=== PATIENT | female | born 1955 | race Caucasian/White ===

== ENCOUNTER → 2021-03-29 13:04 | Outpatient (CLI) | payer MEDICARE, SELFPAY ==
[2021-03-29 13:15] LABS: Bacteria Urine None Seen; RBC Urine None Seen (0-5/HPF)
[2021-03-29 14:52] LABS: Add Manual Diff / Slide Review NO; Basophils Absolute Auto 0 /uL (0-100); Basophils Percent Auto 0.8 % (0-2); Eosinophils Absolute Auto 100 /uL (0-450); Eosinophils Percent Auto 1.3 % (2-4); Hematocrit 39.1 % (36-46); Hemoglobin 12.6 g/dL (12.0-16.0); Lymphocytes Absolute Auto 400 /uL (1100-4500); Lymphocytes Percent Auto 9.6 % (25-40); Mean Corpuscular HGB Conc 32.3 % (30-36); Mean Corpuscular Hemoglobin 32.6 PG (26-34); Mean Corpuscular Volume 101.1 fL (80-100); Monocytes Absolute Auto 200 /uL (0-900); Monocytes Percent Auto 5.1 % (3-14); Neutrophils Absolute Auto 3200 /uL (1500-7000); Neutrophils Percent Auto 83.2 % (50-75); Platelet Count 186 X10^3/uL (150-400); Red Blood Cell Count 3.86 X10^6/uL (4.0-5.2); Red Cell Distribution Width 13.9 % (11.6-14.8); White Blood Cell Count 3.8 X10^3/uL (4.5-11.0)
[2021-03-29 15:02] LABS: Hemoglobin A1C% w Est Avg Glu 5.2 % (4.0-6.0)
[2021-03-29 15:17] LABS: Alanine Aminotransferase 21 IU/L (<35); Albumin 4.5 g/dL (3.5-5.0); Albumin Globulin Ratio 1.6 (1.0-2.8); Alkaline Phosphatase 92 U/L (38-126); Aspartate Aminotransferase 25 IU/L (14-36); BUN Creatinine Ratio 28.6 (6-22); Bilirubin Total 0.3 mg/dL (0.2-1.3); Blood Urea Nitrogen 14 mg/dL (7-17); Calcium 9.6 mg/dL (8.4-10.2); Carbon Dioxide 22 mmol/L (22-32); Chloride 108 mmol/L (98-107); Estimated Glomerular Filt Rate > 60.0 mL/min (>60); Globulin 2.8 g/dL (1.7-4.1); Glucose 110 mg/dL (80-110); HEMOLYSIS < 15 (0-50); Potassium 4.1 mmol/L (3.4-5.1); Sodium 139 mmol/L (137-145); Total Protein 7.3 g/dL (6.3-8.2)
[2021-03-29 15:32] LABS: Appearance Urine UA CLEAR; Bilirubin Urine UA NEGATIVE (NEGATIVE); Color Urine UA YELLOW; Glucose Urine UA NEGATIVE (Negative); Ketones Urine UA NEGATIVE (NEGATIVE); Leukocyte Esterase Urine UA 1+ (NEGATIVE); Nitrite Urine UA NEGATIVE (Negative); Occult Blood Urine UA NEGATIVE (Negative); Protein Urine UA NEGATIVE (Negative); Specific Gravity Urine UA 1.015 (1.000-1.035); Urobilinogen Urine UA 0.2 E.U./dL (0.2)
[2021-03-29 15:46] LABS: Culture Indicated Urine Specimen Cultured; Squamous Epithelial Cell Urine 0-1 /HPF (0-5/HPF); WBC Urine 5-10/HPF (0-5/HPF)
[2021-03-29 16:20] LABS: Transferrin 268 mg/dL (206-381)
== END ==
PROVIDERS: PCP Family Medicine; Referring Provider Orthopaedic Surgery; Visit Provider Orthopaedic Surgery
DX: Z01.812 Encounter for preprocedural laboratory examination (principal); Z01.818 Encounter for other preprocedural examination; D64.9 Anemia, unspecified; N39.0 Urinary tract infection, site not specified
CPT/HCPCS: 36415; 80053; 81001; 83036; 84466; 85025; 87086; 93005; 93010

== ENCOUNTER 2021-04-22 11:01 | Observation (INO) | payer MEDICARE, SELFPAY ==
[2021-04-14 08:14] VITALS: BMI 38.8
[2021-04-21] VITALS (15 sets, daily range): BP systolic 112–158; BP diastolic 49–98; PULSE 65–98; RESP 12–18; TEMP 35.6–36.9; O2SAT 93–99; BMI 38.8
--- NOTE | 2021-04-21 06:30 | DI.RAD.S_ITS ---
PROCEDURE: XR PELVIS 1-2V INDICATIONS: left JACOB TECHNIQUE: Intra-operative view of the pelvis and hip acquired. COMPARISON: None. FINDINGS: Bones: Intraoperative devices prior to placement of arthroplasty prostheses are in expected positions. No fractures or suspicious bony lesions. Soft tissues: Overlying surgical retractors are present, along with other intraoperative changes. IMPRESSION: Intraoperative single frontal view during preparation for placement of final components of left total hip arthroplasty. Normal alignment established. Dictated by: Juan Giraldo M.D. on 04/21/2021 at 15:05 Approved by: Juan Giraldo M.D. on 04/21/2021 at 15:06
--- NOTE | 2021-04-21 06:30 | DI.RAD.S_ITS ---
PROCEDURE: XR HIP W PEL IF DONE LT 2V INDICATIONS: postop films TECHNIQUE: AP pelvis and lateral view of the left hip acquired. COMPARISON: [facility], AVINASH, XR PELVIS 1-2V, 04/21/2021, 14:22. FINDINGS: Bones: Patient is status post left hip arthroplasty, with hardware components in expected positions. The hip joint appears congruent. The visualized bony structures appear intact. Soft tissues: Overlying postoperative changes are noted. No suspicious soft tissue densities. IMPRESSION: Expected immediate postoperative appearance of left hip arthroplasty. Dictated by: Johnie MADISON Interpreted: Shawna Lincoln MD on 04/21/2021 at 15:37 Transcribed by: TRU on 04/21/2021 at 15:38 Approved by: Shawna Lincoln M.D. on 04/21/2021 at 15:47
[2021-04-21] MEDS: LACTATED RINGERS 1,000 ML 42 ML IV ×2 (12:09→14:13)
[2021-04-21] MEDS: VANCOMYCIN 1,000 MG/200 ML PIGGYBACK 200 MG IV (12:10)
[2021-04-21] MEDS: CELECOXIB 200 MG CAPSULE PO (12:11)
--- NOTE | 2021-04-21 12:26 | PM.PREOP ---
Pre-operative Note COVID-19 COVID-19 status: Negative Interval Note History & Physical reviewed/Exam performed by Physician: Yes Changes to H&P: No
--- NOTE | 2021-04-21 12:27 | PM.OP.1 ---
Operative Date/Time/Diagnoses Date of procedure: 04/21/21 Time of procedure: 13:00 Pre-op diagnosis: left AVN Post-op diagnosis: same Procedure & Clinicians Procedure: Left total hip arthroplasty posterior approach Same procedure as scheduled: Yes Indications: The patient has had progressively worsening left hip pain with radiographic changes consistent with severe avascular necrosis. She has a complicated history with a history of rectal cancer and previous radiation to her pelvis and hip area and also has known metastatic cancer. Her case was evaluated by Oncology felt she had appropriate longevity to consider hip arthroplasty because of incapacitating left hip pain. Non-operative management has failed and the patient has requested total hip replacement. The risks, benefits and alternatives to surgery were discussed with the patient prior to proceeding. Risks discussed included, but were not limited to, failure to relieve pain, leg length discrepancy, dislocation, stiffness, infection, nerve damage, deep venous thrombosis, pulmonary embolism, stroke, coma, heart attack, permanent paralysis and , as well as the potential need for eventual revision of the prosthetic. Surgeon: Neha Mendes Insurance Account Assistant: Cayden Hensley Anesthesia Type: General and Spinal Operative Notes Findings: Severe left hip avascular necrosis, soft bone, adequate stability Closure Type: primary Specimen(s): none sent Prosthetic devices, grafts, tissues, transplants, or devices: [employer] 15 standard offset Synergy, R3 54mm cup, +0 by 36mm head, one 20mm screw Applied: drain(s) Estimated Blood Loss (mL): 250 Blood products transfused: none Procedure in detail: The patient was seen in the pre-operative area, where the patient identified the left hip as the operative site and this was marked with my initials. The patient received pre-operative antibiotics and was taken to the operating room and placed on the operative table in the right lateral decubitus position after satisfactory anesthesia. A part time out was performed. The left leg was prepared from the ankle to the iliac crest with ChloroPrep in the usual fashion and draped through sterile drapes. The hip was approached through an approximately 20 cm incision centered over the greater trochanter and curving gently posteriorly as it went proximally. This was carried sharply to the fascia jadiel, which was divided and retracted with a self retaining retractor. The trochanteric bursa was excised with care being taken to avoid the sciatic nerve, which was identified and protected throughout the case. The short external rotators were incised and the capsulomuscular flap was raised and tagged for later repair. The hip was dislocated, and a femoral neck osteotomy performed approximately 15 mm above the lesser trochanter. Retractors were placed around the femur. The canal was opened with a box cutting osteotome, followed by a T handled reamer and a lateralizing reamer. The canal reamers were then used, followed by sequential broaching until there was good stability of the broach in the femur. Retractors were placed to expose the acetabulum. The labrum and central soft tissues were removed. Reaming was performed initially going up in 2 mm increments, then 1 mm increments until good bite was obtained with an odd sized reamer. The cup 1 mm larger than the last reamer was then inserted using the appropriate anteversion guides. It was further stabilized with a single screw. A trial neutral liner was placed. The broach was placed in the canal. A trial head and neck were then placed and the hip relocated and checked for leg length and stability. An intraoperative film confirmed the component position and no evidence of fracture. The patient was stable in the position of sleep, of squatting, and could be put through a range of motion with 45 degrees internal rotation without dislocation. At 90 degrees flexion, internal rotation to 70? was possible before dislocation. This was felt to be satisfactory and the appropriate components were opened, and the trials were removed. The acetabular liner was impacted into position. The final stem was then impacted into the prepared femoral canal. A brief Betadine soak was performed while trialing with head options. The hip was meticulously irrigated with normal saline. Finally the femoral head was impacted onto the stem. The acetabulum was cleared of all material and the hip relocated one final time. The capsulomuscular flap was then repaired to the greater trochanter though an awl hole using the tag sutures. The short external rotators were repaired with a nonabsorbable suture. A deep drain was placed and brought out anteriorly. The fascia jadiel was closed with Vicryl. The subcutaneous layer was closed with barbed sutures and SteriStrips. An Aquacel Ag dressing was applied and the patient was taken to recovery having tolerated the procedure well. Complications: none Post-operative Condition: stable Disposition: Acute Care Plan for aftercare: The patient will be maintained on a standard total hip replacement protocol with weight bearing as tolerated and posterior hip precautions. The patient will receive Aspirin and sequential compression devices for DVT prophylaxis. The patient will be discharged home when safe for the home environment.
[2021-04-21] MEDS: CEFAZOLIN 1 GM VIAL 2 GM IV ×2 (13:15→22:18)
[2021-04-21] MEDS: TRANEXAMIC ACID 1,000 MG VIAL 1000 MG INJ (13:42)
--- NOTE | 2021-04-21 13:52 | SUR.OPER ---
Lateral on padded OR bed. Gel axillary roll. Arms secured on padded armboard with pillow supporting top arm. Padded hip positioner braces x4 - anterior and posterior chest and pelvis. Additional gel pad used anterior pelvis. Gel pad under bottom leg from knee to foot and secured with tape over sheet.
[2021-04-21] MEDS: BUPIVACAINE LIPOSOME 266 MG/20 ML VIAL INJ (14:03)
[2021-04-21] MEDS: BUPIVACAINE 0.25% (PF) VIAL 30 ML INJ (14:04)
[2021-04-21] MEDS: EPINEPHrine 1 MG/ML 0.3 MG INJ (14:05)
[2021-04-21] MEDS: fentaNYL 100 MCG/2 ML INJ IV ×2 (15:42→15:53)
[2021-04-21] MEDS: ONDANSETRON 4 MG/2 ML INJ IV (15:45)
--- NOTE | 2021-04-21 16:41 | PC.NURSE ---
Addendum entered by Hilary Perera R.N. 04/21/21 22:19: IV fluids discontinued and left chest portacath deaccessed. This machine sign writer estabalished peripheral iv access 24 gauge to administer scheduled iv antibiotics. Pt reports pain improved with dilaudid. No change in neurovascular status this evening shift. Lisinopril held this evening as blood pressure is normotensive and pt on pain medications and off of iv fluids. Pt is s/p spinal and this machine sign writer has observed these patients can become hypotensive with activity. Lisinopril held with this in mind. Addendum entered by Hilary Perera R.N. 04/21/21 20:22: Pt's iv fluids have infused without difficulty until this point when pump alarms occlusion. Unable to flush portacath left chest, unable to draw blood. Moved pt's left arm in various positions and still unable. Changed cap to portacath tubing and still without success. Able to flush with pressure using 3 cc syringe, but this is also difficult. Able to flush with heparin, but still with signficiant difficulty. Phone call to Dr. Murphy on-call for Dr. Mendes and this was discussed. Pt may be without iv access as per Dr. Murphy. Pt is taking oral foods and fluids well, pain is managed with oral analgesia and pt is voiding. Addendum entered by Hilary Perera R.N. 04/21/21 17:41: No relief from pain with ibuprofen and oxycodone. Administered po dilaudid as ordered. Original Note: Pt to room 205 from PACU wide awake and conversant. Rates left hip pain /10. CAT drain and hemovac intact to left hip with clean and dry dressing. Ice to site. As per GANTRY RIGGER Jaxson's report, pt's left foot is cooler than right with weak pedal pulse only discoverable with doppler. Per Jaxson, this was the finding in PACU as well and Dr. Mendes was made aware. Right foot is cool to touch and blotchy in color, but warmer than left foot. Pedal pulse right foot present with doppler.
--- NOTE | 2021-04-21 16:50 | SUR.PHASEI ---
DR. DELA CRUZ NOTIFIED LEFT FOOT COOL COMPARED TO RIGHT FOOT. CAP REFILL 5 SEC, THEN 4 SECONDS WHEN RECHECKED AT TIME OF NOTIFICATION. ALSO NOTIFIED THAT PEDAL PULSES FOUND BY DOPPLER ONLY ON LEFT FOOT. NO FURTHER ORDERS AT THIS TIME. SOCK REAPPLIED. WARM BLANKETS PROVIDED. REPORT GIVEN TO MELISA LEAL WHO MET US AT BEDSIDE FOR FACE TO FACE HANDOFF. BED IN LOCKED POSITION, CALL LIGHT IN REACH, SCD'S ON. DRSG CHECKED TOGETHER AND PULSES AUSCULTATED BY DOPPLER. ALL QUESTIONS ANSWERED TO SATISFACTION.
[2021-04-21] MEDS: LACTATED RINGERS 1,000 ML 125 ML IV (16:53)
[2021-04-21] MEDS: OXYCODONE IR 5 MG TABLET 10 MG PO (16:53)
[2021-04-21] MEDS: IBUPROFEN 400 MG TABLET PO ×2 (16:56→20:36)
[2021-04-21] MEDS: HYDROMORPHONE 2 MG TABLET PO ×3 (17:40→23:20)
[2021-04-21] MEDS: ACETAMINOPHEN 325 MG TABLET 650 MG PO (20:30)
[2021-04-21] MEDS: CYCLOBENZAPRINE 10 MG TABLET 5 MG PO (20:31)
[2021-04-21] MEDS: GABAPENTIN 300 MG CAPSULE PO (20:33)
[2021-04-21] MEDS: DOCUSATE 100 MG CAPSULE PO (20:37)
[2021-04-21] MEDS: ASPIRIN EC 81 MG TABLET PO (20:37)
[2021-04-21] MEDS: diphenhydrAMINE 25 MG TABLET PO (23:20)
--- NOTE | 2021-04-21 23:30 | PC.NURSE ---
Patient personal medications from [facility] given to this student nurse. They were bagged, labeled and sent to pharmacy per MELISA Willoughby direction.
[2021-04-22] MEDS: IBUPROFEN 400 MG TABLET PO ×6 (01:27→21:00)
[2021-04-22 05:03] VITALS: BP 127/68; PULSE 81; RESP 18; TEMP 36.6; O2SAT 92
[2021-04-22] MEDS: CEFAZOLIN 1 GM VIAL 2 GM IV (05:05)
[2021-04-22 05:45] LABS: Hematocrit 35.6 % (36-46); Hemoglobin 11.6 g/dL (12.0-16.0)
[2021-04-22 08:32] VITALS: BP 119/67; PULSE 87; RESP 16; TEMP 36.7; O2SAT 93
[2021-04-22] MEDS: ASPIRIN EC 81 MG TABLET PO ×2 (08:49→21:08)
[2021-04-22] MEDS: ACETAMINOPHEN 325 MG TABLET 650 MG PO ×3 (08:49→21:06)
[2021-04-22] MEDS: DOCUSATE 100 MG CAPSULE PO ×2 (08:49→21:08)
[2021-04-22] MEDS: GABAPENTIN 300 MG CAPSULE PO ×2 (08:49→21:08)
--- NOTE | 2021-04-22 08:50 | PT.IIE ---
Current Diagnoses Unilateral primary osteoarthritis, left hip (04/21/21) Surgery Performed Operation Date: 04/21/21 13:00 Actual Procedures p Total Hip Arthroplasty(Left) - Neha Mendes MD Medical History (Last Reviewed 04/22/21 @ 08:59 by Skip Boyle PA-C) Colostomy in place GERD (gastroesophageal reflux disease) Hiatal hernia History of chemotherapy HTN (hypertension) Neuropathy Osteoarthritis Port-A-Cath in place Radiation adverse effect Rectal cancer (~2018) Seasonal allergies Physical Therapy Inpatient Evaluation/Re-Eval M1 PT/OT-IP Prior Functional Status Start: 04/22/21 11:16 Freq: NEEDED Status: Active Protocol: Document 04/22/21 08:50 AB (Rec: 04/22/21 11:37 AB [id number]) Medical Review Prior Functional Status Medical History Reviewed Yes Communication able to make needs known Mobility and Gait pt stated that she is modified independent with all mobilities and ambulation using SPC Social History Household Members none Living Arrangements Mobile home Number of Floors (Floors) One Floor Number of Stairs To Enter/Railing? 7 steps B rails to enter Home Environment High Toilet,Tub/Shower Home Equipment Grab Bars Near Toilet,Grab Bars In Shower Additional Social History Comment pt stated that she has 2 neighbors/friends that will assist her but may not be able to provide her with physical assistance; stated that her sister who lives in [place], [place] and is an RN will come to stay with her on saturday and will be able to assist her for ~ 5 days. pt sleeps an office chair propped against the wall and she has a foot stool to support her LE M2 PT-IP Current Condition Start: 04/22/21 11:16 Freq: NEEDED Status: Active Protocol: Document 04/22/21 08:50 AB (Rec: 04/22/21 11:37 AB [id number]) Physical Therapy Current Condition Current Condition Evaluation Date 04/22/21 Treatment Diagnosis s/p L JACOB posterior approach; difficulty in walking Onset Date 04/21/21 Precautions Posterior Hip Precautions No Hip Flexion > 90 degrees,No Hip Internal Rotation,No Hip Adduction Weight Bearing Status Weight Bearing Status Weight Bear as Tolerated Allowed Weight Bearing Amount (enter % LLE WBAT or #) (%) M3 PT-IP Subjective Start: 04/22/21 11:16 Freq: NEEDED Status: Active Protocol: Document 04/22/21 08:50 AB (Rec: 04/22/21 11:37 AB [id number]) Subjective Physical Therapy Visit Type Type Initial Evaluation Visit Start Time 08:50 Visit Stop Time 10:30 Total Visit Minutes 61 Number of INSTALLATION TECH Visits 0 Physical Therapy Visit Comments Patient Comments agreeable to do PT; stated that she wants to stay in the hospital for 1 more night Therapy Pain Assessment Pain When Pain Assessed At Rest Pain Present Pain Present Pain Reported Location left hip Intensity 6 Scale Used Numeric (0 - 10) Pain Behaviors Guarding Pain Management Techniques Apply Cold,Modification of Treatment,Re-positioning, Timing of Activity with Medications M4 PT-IP Mobility and Gait Start: 04/22/21 11:16 Freq: NEEDED Status: Active Protocol: Document 04/22/21 08:50 AB (Rec: 04/22/21 11:37 AB [id number]) PT-Bed Mobility Assessment Supine to Sit Supine to Sit Maximum Assistance PT-Transfer Assessment Sit to and From Stand Sit to and from Stand Maximum Assistance,2 Person Assistance,Use of Upper Extremities Equipment Transfer Assistive Device Gait Belt,Front Wheeled Walker Orthotic/Prosthetic Devices or Brace: No Transfers Transfer Destination Chair Transfer Technique ambulated using FWW Transfer Ability Level of Assist Maximum Assistance,Use of Upper Extremities Comments Mobility Comments pt stated that she has been limited with mobility for a long time but able to manage by herself. educated pt on hip precautions and safety. pt completed supine to sit max A and max cues. pt was able to sit on EOB CGA. educated on sit to stand techniques and how to maintain hip precautions. pt tends to rotate trunk towards R side during sit to stand resulting in IR on LLE. attempted sit to stand x 4 reps requiring max A x 2 and max cues. pt ambulated using FWW ~ 12 ft mod A and max cues. pt requested to sit down on chair . positioned on chair. call light and table placed within reach. informed regarding safe d/c plans and pt understood and d/ c options. currently recommending SNF rehab but insurance may not cover. pt stated that one of her friends might be able to assist her some but cannot stay with her. informed pt that she is needing 2 person assist at this time. pt understood. Gait Assessment Gait Gait Assistance Required: Moderate Assistance,1 Person Assist Distance (Feet) 12 Able to Maintain Weight Bearing Status Yes During Gait Assistive Devices Assistive Device Gait Belt,Front Wheeled Walker Orthotic/Prosthetic Devices or Brace: No Gait Deviations General Gait Pattern Antalgic,Decreased Stride Length,Decreased Feet Clearance,Lateral Trunk Lean, Step-to Gait Factors Limiting Gait Function Factors Limiting Gait Function Decreased Activity Tolerance, Decreased Strength,Limited Range of Motion,Pain,Poor Balance,Poor Safety Awareness PT-Balance Assessment Sitting Balance and Reactions Static Sitting Balance Ability Good Dynamic Sitting Balance Ability Good Standing Balance and Reactions Static Standing Balance Ability Poor Dynamic Standing Balance Ability Poor Device Used FWW M5 PT-IP Objective Assessments Start: 04/22/21 11:16 Freq: NEEDED Status: Active Protocol: Document 04/22/21 08:50 AB (Rec: 04/22/21 11:37 AB [id number]) Orientation Orientation/Cognition Level of Alertness Alert Orientation Name,Place,Situation Safety Awareness Decreased Safety Awareness Gross Range of Motion Lower Extremity ROM Assessment Within Functional Limits Strength Lower Extremity Strength Assessment Left Impaired Hip 3+/5 Knee 3+/5 M6 PT-IP Treatment Start: 04/22/21 11:16 Freq: NEEDED Status: Active Protocol: Document 04/22/21 08:50 AB (Rec: 04/22/21 11:37 AB [id number]) Physical Therapy Treatment Education Education Provided Precautions,Weight Bearing Status,Post-Op Packet,Safety M7 PT-IP Assessment and Plan Start: 04/22/21 11:16 Freq: NEEDED Status: Active Protocol: Document 04/22/21 08:50 AB (Rec: 04/22/21 11:37 AB [id number]) PT Summary Assessment and Plan Potential Rehabilitation Potential Fair Status of Condition at Evaluation Evolving Summary Impairments Pain,ROM,Strength,Balance, Coordination,Sensation,Tone, Cognition,Bed Mobility, Transfers,Gait,Activity Tolerance Assessment Summary pt requiring max A x 2 with sit to stand and max cues with ambulation using FWW. pt lives alone and will not have consistent assistance at home until her sister comes in on saturday. pt also has stairs at home and is not appropriate to do stairs at this time. will continue to assess progress but at this time, pt may require SNF rehab. will conduct caregiver training and stair climbing training when appropriate Goals Bed Mobility Goal Independent Transfer Goal Independent,Front Wheeled Walker Gait Goal Independent,Front Wheel Walker Gait Distance 150 Other Goals up/down 7 step B rails SBA Days to Meet Goals 5 Frequency of Treatment Frequency Of Treatment Twice a Day Treatment Plan Physical Therapy Treatment Plan Bed Mobility Training,Transfer Training,Gait Training, Therapeutic Exercise,Balance Retraining,Post Op Education, Discharge Planning,Hot or Cold Pack,Neuromuscular Re-ed, Coordination Retraining,Manual Therapy Precautions Posterior Hip Precautions No Hip Flexion > 90 degrees,No Hip Internal Rotation,No Hip Adduction Recommendations To Nursing Amount of Assist Needed 2 Person Assist Discharge Recommendations PT Discharge Recommendations Home with 08/04 Assist Available,Home Health,SNF Rehab,Home vs SNF Transportation Needs at Discharge Private Vehicle,Wheelchair/ Cabulance
--- NOTE | 2021-04-22 08:56 | PM.PNPO.1 ---
Subjective Subjective Date Patient Seen: 04/22/21 Time Patient Seen: 08:56 Interval history: Patient states she is doing well overall but reports moderate pain at rest. At this time she rates her pain a 7/10 in intensity. She denies fever, chills, nausea, chest pain, shortness of breath, or urinary retention. Patient reports that she has not yet worked with physical therapy, and she notes that she is concerned about left lower extremity weakness. She also reports that she does not feel she has the care at home that she will need in order to continue to improve if discharged today. Exam Vital Signs (past 8 hours): - 04/22/21 05:03 04/22/21 08:32 Temperature 97.9 F 98.1 F Pulse Rate 81 87 Respiratory Rate 18 16 Blood Pressure 127/68 119/67 Pulse Oximetry 92 93 Oxygen Delivery Method Room Air Oxygen Flow Rate 0 Narrative Exam Narrative: 65-year-old female postop day 1 status post left posterior total hip arthroplasty. Patient is resting comfortably in bed, is in no acute distress, and is alert and oriented x3. Skin is warm and dry, and the skin surrounding the incision site is free of erythema, warmth, induration, or discharge. Dressing over the incision site is clean, dry, and intact. Wound drain is draining scant amount of red blood. Good sensation appreciated throughout the bilateral lower extremities to light touch. Mild tenderness to palpation appreciated at the anteromedial aspect of the left proximal thigh. Ankle dorsiflexion, plantar flexion, eversion, inversion performed bilaterally without difficulty or discomfort. Calves are soft and nontender, negative Homans sign. DP pulses palpated bilaterally and are even. No other signs of DVT appreciated. Const General: cooperative, healthy appearing and comfortable Resp Effort & Inspection: normal respiratory effort and able to speak in complete sentences Skin General: no rashes or lesions noted Objective Labs Result Diagrams: 04/22/21 05:30 Labs: Laboratory Results - last 24 hr 04/22/21 05:30 Hgb 11.6 L Hct 35.6 L PFSH Medical History Colostomy in place GERD (gastroesophageal reflux disease) Hiatal hernia History of chemotherapy HTN (hypertension) Neuropathy Osteoarthritis Port-A-Cath in place Radiation adverse effect Rectal cancer (~2019) Seasonal allergies Surgical History History of hysterectomy Hx of arthroscopy of right knee Hx of cholecystectomy Social History household members: none Smoking Status: Never smoker alcohol intake: never Assessment & Plan Post-op Postoperative Procedures: Procedures Operation Date: 04/21/21 13:00 Actual Procedure Side Surgeon p Total Hip Arthroplasty Left Neha Doretha Mendes MD Postoperative day: 1 Postoperative status: doing well Postoperative plan: ambulate Postoperative plan narrative: Patient is to work on ambulation with the assistance of a front wheeled walker with physical therapy. Patient is also to work on stair [place] prior to discharge. Current pain management regimen is to be continued. Aspirin 81 mg twice daily is to be continued for DVT prophylaxis along with the assistance of sequential compression devices. We will continue to monitor the patient's progress with physical therapy. Plan for discharge likely home tomorrow pending successful work with physical therapy. Quality VTE Deep Vein Thrombosis/Pulmonary Embolism Present on Admission: No
[2021-04-22] MEDS: OXYCODONE IR 5 MG TABLET 10 MG PO ×2 (09:16→12:30)
[2021-04-22] MEDS: SODIUM CHLORIDE 0.9% FLUSH 10 ML IV ×2 (09:22→21:09)
--- NOTE | 2021-04-22 11:41 | PC.NURSE ---
Patient up to BSC with 1 p assist using FWW this AM. Voiding without complication. Burping colostomy. Endorses pain /, Oxy administered. Skip SONI into see patient, will attempt to control pain without PO Dilaudid and instead maintain pain with Oxy 5-10 mg. Patient receptive to this plan. L Hip dressing is dry and intact, pinpoint strikethrough noted. Hemovac removed per order, patient tolerated. CMS intact. SCD's were on bilaterally and removed for transfer to chair. Lungs CTA, patient remains on RA, VSS.
--- NOTE | 2021-04-22 12:21 | CM.IDA ---
Initial DCP Assessment Note Pt is a 65 yo female, resident of [place], now POD#1 from left hip surgery by Dr Mendes PCP: Paulette Muir Payer: [employer] CAMPOS Reviewed chart, patient appears slow to progress s/p hip surgery and PT recommending home w/assist vs SNF. Met w/patient, introduced role. Patient lives alone in an , within a [place]. Patient's younger sister is an METER MAINTENANCE PERSON in [place] and will be driving up to assist patient, arrival is Saturday. Patient is a retired mental health provider/medical social consultant, no adult children. We reviewed DCP options and patient does not feel she requires SNF, patient states she could get transport home tomorrow and have neighbors assist over the next 48 hrs until her sister arrives. Patient would appreciate HH referral, no agency preference, so made referral to [facility] for RN/PT per calendar rotation. Plan: DC home w/ HH expected tomorrow if patient can safely ambulate out of bed and to the , possible cg training w/neighbor (?) SHAWN Barker Discharge Planning/Care Management CM Discharge Assessment Start: 04/22/21 12:17 Freq: Status: Active Protocol: Document 04/22/21 12:17 JADA (Rec: 04/22/21 12:21 JADA [id number]) Discharge Planning Assessment Assigned [employer] SHAWN Salas DPOA/Assigned Designee Name sister Pacheco Contact Information [phone] Advance Directives? No History Provided By Patient Prior Living Arrangements Mobile home Household Members none Type of transporation used prior to Drives own vehicle admit Independent with ADL's Yes: Decreased activity tolerance Is patient alert and oriented? Yes Patient/Family Preference Home with Home Health Barriers to Discharge Yes Comment Lives alone, sister arrives Saturday from [place], lives [place] Discharge Plan Home with Home Health Transportation Arrangement Friend Referrals Initiated Home Health Additional Comment [facility] per calendar rotation Whiteboard Updated in Patient Room with Yes name and ext. # of [employer] Sawyer
--- NOTE | 2021-04-22 13:20 | PT.IPTN ---
Current Diagnoses Unilateral primary osteoarthritis, left hip (04/21/21) Surgery Performed Operation Date: 04/21/21 13:00 Actual Procedures p Total Hip Arthroplasty(Left) - Neha Mendes MD Physical Therapy Treatment Note M2 PT-IP Current Condition Start: 04/22/21 11:16 Freq: NEEDED Status: Active Protocol: Document 04/22/21 08:50 AB (Rec: 04/22/21 11:37 AB [id number]) Physical Therapy Current Condition Current Condition Evaluation Date 04/22/21 Treatment Diagnosis s/p L JACOB posterior approach; difficulty in walking Onset Date 04/21/21 Precautions Posterior Hip Precautions No Hip Flexion > 90 degrees,No Hip Internal Rotation,No Hip Adduction Weight Bearing Status Weight Bearing Status Weight Bear as Tolerated Allowed Weight Bearing Amount (enter % LLE WBAT or #) (%) M3 PT-IP Subjective Start: 04/22/21 11:16 Freq: NEEDED Status: Active Protocol: Document 04/22/21 13:20 AB (Rec: 04/22/21 14:59 AB [id number]) Subjective Physical Therapy Visit Type Type Treatment Note Visit Start Time 13:20 Visit Stop Time 14:10 Total Visit Minutes 50 Number of PHYSICAL FITNESS TEACHER Visits 0 Physical Therapy Visit Comments Patient Comments pt agreed to do PT Therapy Pain Assessment Pain When Pain Assessed At Rest Pain Present Pain Present Pain Reported Location left hip Intensity 3 Scale Used Numeric (0 - 10) Pain Management Techniques Apply Cold,Distraction, Modification of Treatment,Re- positioning,Timing of Activity with Medications M4 PT-IP Mobility and Gait Start: 04/22/21 11:16 Freq: NEEDED Status: Active Protocol: Document 04/22/21 13:20 AB (Rec: 04/22/21 14:59 AB [id number]) PT-Bed Mobility Assessment Supine to Sit Supine to Sit Standby Assistance,Bedrails Sit to Supine Sit to Supine Minimal Assistance,1 Person Assistance PT-Transfer Assessment Sit to and From Stand Sit to and from Stand Minimal Assistance,Moderate Assistance,1 Person Assistance ,Use of Upper Extremities Equipment Transfer Assistive Device Gait Belt,Front Wheeled Walker Orthotic/Prosthetic Devices or Brace: No Transfers Transfer Destination Chair Transfer Technique ambulated using FWW Transfer Ability Level of Assist Minimal Assistance,Moderate Assistance,1 Person Assistance ,Use of Upper Extremities Comments Mobility Comments reviewed hip precautions and pt recalled 2/3. pt completed supine to sit HOB elevated ~ 20 deg and pt used bed rail and completed SBA and cues for techniques. educated on sit< >stand techniques and to maintain hip precautions. completed sit <>stand x 4 reps . on first sit to stand, pt attempted x 3 but tends to have LLE pulled behind her and pt rotated trunk to the R with increase IR on LLE. educated pt again on techniques. completed sit to stand 3 more time min to mod A and max cues. pt ambulated ~ 30 ft in room using FWW min A. sat on chair. completed sit <> stand from chair min A and cues. pt ambulated back to the bed ~ 12 ft using FWW min A and cues. pt refused to do stair climbing and requested to go back to bed. completed sit to supine max cues min A with LLE elevation. positioned pt in bed. call light and table placed within reach. educated pt on car transfers, tub transfer and equipement needs as well as stair climbing. pt refused to do stair climbing today but agreed to attempt tomorrow. stated that she usually holds on to L rail and uses SPC on R and prefer to cotinue doing the same. will attempt tomorrow. Gait Assessment Gait Gait Assistance Required: Minimum Assistance Distance (Feet) 30 Able to Maintain Weight Bearing Status Yes During Gait Assistive Devices Assistive Device Gait Belt,Front Wheeled Walker Orthotic/Prosthetic Devices or Brace: No Gait Deviations General Gait Pattern Antalgic,Decreased Stride Length,Decreased Feet Clearance Factors Limiting Gait Function Factors Limiting Gait Function Decreased Activity Tolerance, Decreased Strength,Limited Range of Motion,Pain,Poor Balance,Poor Safety Awareness M5 PT-IP Objective Assessments Start: 04/22/21 11:16 Freq: NEEDED Status: Active Protocol: Document 04/22/21 08:50 AB (Rec: 04/22/21 11:37 AB [id number]) Orientation Orientation/Cognition Level of Alertness Alert Orientation Name,Place,Situation Safety Awareness Decreased Safety Awareness Gross Range of Motion Lower Extremity ROM Assessment Within Functional Limits Strength Lower Extremity Strength Assessment Left Impaired Hip 3+/5 Knee 3+/5 M6 PT-IP Treatment Start: 04/22/21 11:16 Freq: NEEDED Status: Active Protocol: Document 04/22/21 13:20 AB (Rec: 04/22/21 14:59 AB [id number]) Physical Therapy Treatment Education Education Provided Precautions,Safety M7 PT-IP Assessment and Plan Start: 04/22/21 11:16 Freq: NEEDED Status: Active Protocol: Document 04/22/21 13:20 AB (Rec: 04/22/21 14:59 AB [id number]) PT Summary Assessment and Plan Potential Rehabilitation Potential Fair Summary Impairments Pain,ROM,Strength,Balance, Coordination,Sensation,Tone, Cognition,Bed Mobility, Transfers,Gait,Activity Tolerance Progress Towards Goals Slow Progress due to Pain,Slow Progress due to Activity Tolerance,Slow Progress - Other Assessment Summary pt improving slowly with mobility and requiring min A with ambulation using FWW. pt lives alone and sister will be coming saturday from [place] to assist pt at home for ~ 5 days . stated that she has 2 friends that will assist as needed but will not be able to provide physical assistance. will continue to work towards goal to improve independence for safe d/c plan. pt has stairs to enter the house and will have to complete prior to d/c. Goals Bed Mobility Goal Independent Transfer Goal Independent,Front Wheeled Walker Gait Goal Independent,Front Wheel Walker Gait Distance 150 Other Goals up/down 7 step L rails + R SPC SBA Days to Meet Goals 5 Frequency of Treatment Frequency Of Treatment Twice a Day Treatment Plan Physical Therapy Treatment Plan Bed Mobility Training,Transfer Training,Gait Training, Therapeutic Exercise,Balance Retraining,Post Op Education, Discharge Planning,Hot or Cold Pack,Neuromuscular Re-ed, Coordination Retraining,Manual Therapy Precautions Posterior Hip Precautions No Hip Flexion > 90 degrees,No Hip Internal Rotation,No Hip Adduction Other Precautions WBAT LLE Recommendations To Nursing Amount of Assist Needed 1 Person Assist Discharge Recommendations PT Discharge Recommendations Home with 08/04 Assist Available,Home Health,SNF Rehab,Home vs SNF Transportation Needs at Discharge Private Vehicle,Wheelchair/ Cabulance
[2021-04-22 15:58] VITALS: BP 119/68; PULSE 88; RESP 18; TEMP 36.9; O2SAT 94
[2021-04-22] MEDS: diphenhydrAMINE 25 MG TABLET PO (16:17)
[2021-04-22 19:26] VITALS: BP 126/60; PULSE 91; RESP 18; TEMP 36.5; O2SAT 93
[2021-04-22 21:01] VITALS: BP 139/71; PULSE 99
[2021-04-22] MEDS: lisinopriL 20 MG TABLET PO (21:01)
[2021-04-22] MEDS: CYCLOBENZAPRINE 10 MG TABLET 5 MG PO (21:07)
[2021-04-22] MEDS: OXYCODONE IR 5 MG TABLET PO (21:31)
[2021-04-22 23:50] VITALS: BP 104/67; PULSE 92; RESP 18; TEMP 36.7; O2SAT 92
[2021-04-23] MEDS: IBUPROFEN 400 MG TABLET PO ×6 (00:37→21:39)
[2021-04-23] MEDS: diphenhydrAMINE 25 MG TABLET PO ×4 (02:05→18:56)
[2021-04-23] MEDS: OXYCODONE IR 5 MG TABLET 10 MG PO ×2 (03:47→08:48)
[2021-04-23 04:12] VITALS: BP 116/52; PULSE 78; RESP 18; TEMP 37; O2SAT 96
[2021-04-23 08:00] VITALS: BP 99/53; PULSE 88; RESP 16; TEMP 36.2; O2SAT 95
[2021-04-23] MEDS: ACETAMINOPHEN 325 MG TABLET 650 MG PO ×3 (08:47→21:41)
[2021-04-23] MEDS: ASPIRIN EC 81 MG TABLET PO ×2 (08:47→21:39)
[2021-04-23] MEDS: GABAPENTIN 300 MG CAPSULE PO ×2 (08:47→21:39)
[2021-04-23] MEDS: DOCUSATE 100 MG CAPSULE PO ×2 (08:48→21:38)
--- NOTE | 2021-04-23 09:01 | P.PN_ITS ---
Subjective Subjective Date Patient Seen: 04/23/21 Time Patient Seen: 09:02 Interval history: The patient reports that she has having less pain every day. Exam Vital Signs (past 8 hours): - 04/23/21 04:12 04/23/21 08:00 Temperature 98.6 F 97.1 F L Pulse Rate 78 88 Respiratory Rate 18 16 Blood Pressure 116/52 L 99/53 L Pulse Oximetry 96 95 Oxygen Delivery Method Room Air Oxygen Flow Rate 0 Narrative Exam Narrative: The patient is seen, lying comfortably in bed. Leg length and rotation appear appropriate. The bandage is without significant drainage. Calf is soft. Light touch and motion are intact in the left lower extremity. Objective Labs Result Diagrams: 04/22/21 05:30 PFSH Medical History Colostomy in place GERD (gastroesophageal reflux disease) Hiatal hernia History of chemotherapy HTN (hypertension) Neuropathy Osteoarthritis Port-A-Cath in place Radiation adverse effect Rectal cancer (~2018) Seasonal allergies Surgical History History of hysterectomy Hx of arthroscopy of right knee Hx of cholecystectomy Social History household members: none Smoking Status: Never smoker alcohol intake: never Assessment & Plan Post-op Postoperative Procedures: Procedures Operation Date: 04/21/21 13:00 Actual Procedure Side Surgeon p Total Hip Arthroplasty Left Neha Mendes MD Postoperative day: 2 Postoperative status narrative: Stable postoperative day 2 status post left total hip replacement through a posterior approach. She was able to walk with minimal assistance using a walker yesterday. She did not attempt stairs. She has a flight of 7 steps to get into her house. After that the house is [address]. She is relying on 2 elderly friends to help her until her sister arrives to care for her for 5 days on Saturday. Postoperative plan: routine post-op care and ambulate Postoperative plan narrative: We will continue physical therapy. She will attempt stairs today. Given her home situation with a large flight of stairs to get in and out and the fact that she is relying only on 2 bray neighbors for help until she has somebody who can stay with her, I believe she will need to s staci in the hospital until tomorrow and then should be ready for discharge. Time Spent With Patient Time with patient: less than 15 minutes Quality VTE Deep Vein Thrombosis/Pulmonary Embolism Present on Admission: No
--- NOTE | 2021-04-23 09:33 | PT-IP ANOTE ---
Pt requested to defer PT treatment this AM, citing fatigue. Pt agreed to practice stairs at PM session.
--- NOTE | 2021-04-23 12:05 | CM.DPC ---
Addendum entered by SHAWN Segura 04/23/21 16:04: ADD: Per PT, pt was much more motivated and able to participate in PT this afternoon and was able to complete stair training but plan is more stairs tomorrow morning with friend present for CG training and then still recommending HH at d/c. SW obtained completed F2F and HH orders and will fax to [facility] along with d/c summary at discharge. Plan: SW to follow for plan of home via friend POV tomorrow after further CG/Stairs training and faxing F2F, MD orders, and d/c summary to [facility] . BF Original Note: DCP Cont: Per Ortho , pt continues to improve slowly and due to d/c plan and need to work further with PT on stairs for safe discharge pt not discharging today but tomorrow after further therapy. Per PT, pt declined PT this morning due to fatigue and states she is willing to work with therapy later today. PT will attempt again later today for stairs. [facility] referral previously faxed. Plan: SW to follow after PT and stairs and to confirm F2F for HH completed and plan of d/c home tomorrow. SHAWN Segura
--- NOTE | 2021-04-23 13:17 | PT.IPTN ---
Current Diagnoses Unilateral primary osteoarthritis, left hip (04/21/21) Surgery Performed Operation Date: 04/21/21 13:00 Actual Procedures p Total Hip Arthroplasty(Left) - Neha Mendes MD Physical Therapy Treatment Note M2 PT-IP Current Condition Start: 04/22/21 11:16 Freq: NEEDED Status: Active Protocol: Document 04/22/21 08:50 AB (Rec: 04/22/21 11:37 AB [id number]) Physical Therapy Current Condition Current Condition Evaluation Date 04/22/21 Treatment Diagnosis s/p L JACOB posterior approach; difficulty in walking Onset Date 04/21/21 Precautions Posterior Hip Precautions No Hip Flexion > 90 degrees,No Hip Internal Rotation,No Hip Adduction Weight Bearing Status Weight Bearing Status Weight Bear as Tolerated Allowed Weight Bearing Amount (enter % LLE WBAT or #) (%) M3 PT-IP Subjective Start: 04/22/21 11:16 Freq: NEEDED Status: Active Protocol: Document 04/23/21 13:17 AW (Rec: 04/23/21 13:35 AW [id number]) Subjective Physical Therapy Visit Type Type Treatment Note Visit Start Time 12:46 Visit Stop Time 13:17 Total Visit Minutes 31 Number of BUILDING CERTIFIER Visits 0 Physical Therapy Visit Comments Patient Comments pt agreed to do PT Therapy Pain Assessment Pain When Pain Assessed During Mobility Pain Present Pain Present Pain Reported Location left hip Intensity 8 Scale Used Numeric (0 - 10) Pain Management Techniques Apply Cold,Distraction, Modification of Treatment,Re- positioning,Timing of Activity with Medications M4 PT-IP Mobility and Gait Start: 04/22/21 11:16 Freq: NEEDED Status: Active Protocol: Document 04/23/21 13:17 AW (Rec: 04/23/21 13:35 AW [id number]) PT-Bed Mobility Assessment Supine to Sit Supine to Sit Contact Guard Assistance, Bedrails Sit to Supine Sit to Supine Contact Guard Assistance Scooting Scooting to Edge of Bed Standby Assistance PT-Transfer Assessment Sit to and From Stand Sit to and from Stand Contact Guard Assistance,1 Person Assistance,Use of Upper Extremities Equipment Transfer Assistive Device Gait Belt,Front Wheeled Walker Orthotic/Prosthetic Devices or Brace: No Transfers Transfer Destination Bed,Wheelchair Transfer Technique ambulated using FWW Transfer Ability Level of Assist Minimal Assistance,1 Person Assistance,Use of Upper Extremities Comments Mobility Comments Pt required reminders about hip flexion precautions during mobility but was able to maintain all precautions with verbal cues. Gait Assessment Gait Gait Assistance Required: Standby Assistance Distance (Feet) 110 Able to Maintain Weight Bearing Status Yes During Gait Assistive Devices Assistive Device Gait Belt,Front Wheeled Walker Orthotic/Prosthetic Devices or Brace: No Gait Deviations General Gait Pattern Antalgic,Decreased Stride Length,Decreased Feet Clearance,Step-to Gait Factors Limiting Gait Function Factors Limiting Gait Function Decreased Activity Tolerance, Decreased Strength,Limited Range of Motion,Pain,Poor Balance,Poor Safety Awareness Comments Gait Comments Gait was characterized by excessive proniation left foot and what appeared to be vaulting on the LLE possibly due to functional limb length discrepancy. Stair Climbing Assessment Evaluation Level of Assist On Stairs Minimal Assistance,1 Person Assistance Devices Stair Climbing Assistive Devices Straight Cane,Left Railing Technique/Endurance Stair Climbing Direction Ascend and Descend Stair Climbing Technique Step to Step Number of Steps Climbed 3 Stair Climbing Set # Repetitions (reps) 1 Comments Stair Climbing Comments Pt was able to sequence stair climbing appropriately after instruction and demo. She needed min assist to elevate her LLE once on ascent and did not clear her foot properly once on descent. M5 PT-IP Objective Assessments Start: 04/22/21 11:16 Freq: NEEDED Status: Active Protocol: Document 04/22/21 08:50 AB (Rec: 04/22/21 11:37 AB [id number]) Orientation Orientation/Cognition Level of Alertness Alert Orientation Name,Place,Situation Safety Awareness Decreased Safety Awareness Gross Range of Motion Lower Extremity ROM Assessment Within Functional Limits Strength Lower Extremity Strength Assessment Left Impaired Hip 3+/5 Knee 3+/5 M6 PT-IP Treatment Start: 04/22/21 11:16 Freq: NEEDED Status: Active Protocol: Document 04/23/21 13:17 AW (Rec: 04/23/21 13:35 AW [id number]) Physical Therapy Treatment Education Education Provided Precautions,Weight Bearing Status,Safety M7 PT-IP Assessment and Plan Start: 04/22/21 11:16 Freq: NEEDED Status: Active Protocol: Document 04/23/21 13:17 AW (Rec: 04/23/21 13:35 AW [id number]) PT Summary Assessment and Plan Potential Rehabilitation Potential Fair Summary Impairments Pain,ROM,Strength,Balance, Coordination,Sensation,Tone, Cognition,Bed Mobility, Transfers,Gait,Activity Tolerance Progress Towards Goals Slow Progress due to Pain,Slow Progress due to Activity Tolerance,Slow Progress - Other Assessment Summary Pt was able to progress her gait this PM, walking 110 feet with FWW SBA. She required min assist for stairs. Will conduct stair training with friend/caregiver at next session before discharge. Goals Bed Mobility Goal Independent Transfer Goal Independent,Front Wheeled Walker Gait Goal Independent,Front Wheel Walker Gait Distance 150 Other Goals up/down 7 step L rails + R SPC SBA Days to Meet Goals 5 Frequency of Treatment Frequency Of Treatment Twice a Day Treatment Plan Physical Therapy Treatment Plan Bed Mobility Training,Transfer Training,Gait Training, Therapeutic Exercise,Balance Retraining,Post Op Education, Discharge Planning,Hot or Cold Pack,Neuromuscular Re-ed, Coordination Retraining,Manual Therapy Precautions Posterior Hip Precautions No Hip Flexion > 90 degrees,No Hip Internal Rotation,No Hip Adduction Other Precautions WBAT LLE Recommendations To Nursing Amount of Assist Needed 1 Person Assist Discharge Recommendations PT Discharge Recommendations Home with 08/04 Assist Available,Home Health Transportation Needs at Discharge Private Vehicle,Wheelchair/ Cabulance
[2021-04-23 16:30] VITALS: BP 110/61; PULSE 92; RESP 20; TEMP 36.8; O2SAT 96
[2021-04-23 20:57] VITALS: BP 130/60; PULSE 95; RESP 18; TEMP 36.8; O2SAT 95
[2021-04-23] MEDS: hydrOXYzine pamoate 25 MG CAPSULE 50 MG PO (21:38)
[2021-04-23] MEDS: CYCLOBENZAPRINE 10 MG TABLET 5 MG PO (21:39)
[2021-04-23 21:40] VITALS: BP 130/60; PULSE 95
[2021-04-23] MEDS: lisinopriL 20 MG TABLET PO (21:40)
[2021-04-23 23:54] VITALS: BP 131/66; PULSE 92; RESP 18; TEMP 36.2; O2SAT 93
[2021-04-24] MEDS: IBUPROFEN 400 MG TABLET PO ×3 (00:21→08:41)
--- NOTE | 2021-04-24 07:38 | P.DS_ITS ---
History of Present Illness History of Present Illness Date Patient Seen: 04/24/21 Time Patient Seen: 07:38 Chief complaint: OPB Narrative: Patient states she is doing well overall and feels her pain level has improved significantly following surgery. At this time she denies fever, chills, nausea, chest pain, shortness of breath, or urinary retention. Patient states that she feels comfortable with being discharged home. Discharge Providers Provider Discharge Date: 04/24/21 Primary care physician: Paulette Muir MD Consults: 04/21/21 06:30 Consult to Anesthesiology Routine Comment: Consulting Provider: Anesthesiologist Reason for consultation: Regional block for post operative pain control Consult to Anesthesiology Routine Comment: Consulting Provider: Anesthesiologist Reason for consultation: Regional block for post operative pain control 04/21/21 16:41 Consult to Discharge Planning Routine Comment: Consult to Physical Therapy Evaluate & Treat Comment: Physician Instructions: post op JACOB protocol Consult to Respiratory Therapy Evaluate & Treat Comment: Physician Instructions: Evaluate and treat 04/22/21 11:51 Consult to Home Health Routine Comment: Reason For Exam: Home Health Upon DC 04/23/21 16:28 Consult to Occupational Therapy Evaluate & Treat Comment: Pt would like to shower in am Physician Instructions: Discharge provider: Skip Boyle PA-C Summary Hospital Course Discharge Diagnosis: Left hip avascular necrosis Status post left posterior total hip arthroplasty Hospital Course: Patient was admitted to the hospital following the above-listed procedure for the above-listed diagnosis. Following the procedure the patient has been convalescing appropriately in her pain has been managed with her current pain management regimen. Aspirin 81 mg twice daily has been administered for DVT prophylaxis along with the assistance of sequential compression devices. Throughout the course of her time in the hospital the patient has denied fever, chills, nausea, chest pain, shortness of breath, or urinary retention. Patient has remained weight-bearing as tolerated with the assistance of a front wheeled walker. Standard total hip replacement protocol, with posterior hip precautions. Patient has successfully worked on ambulation with the assistance of a front wheeled walker with physical therapy. She is also successfully worked on stair [place] with physical therapy. Status at Discharge Cognitive/behavioral status at discharge: oriented Functional status at discharge: uses cane/walker Overall status at discharge: patient is progressing back to baseline Exam Vital Signs (past 8 hours): - 04/23/21 23:54 Temperature 97.1 F L Pulse Rate 92 H Respiratory Rate 18 Blood Pressure 131/66 Pulse Oximetry 93 Oxygen Delivery Method Room Air Oxygen Flow Rate 0 Narrative Exam Narrative: 65-year-old female postop day 3 status post left posterior total hip arthroplasty. Patient is resting comfortably in bed, is in no acute distress, and is alert and oriented x3. Skin is warm and dry, and the skin surrounding the incision site is free of erythema, warmth, induration, or discharge. Dressing over the incision site is clean, dry, and intact. Good sensation appreciated throughout the bilateral lower extremities to light touch. Ankle dorsiflexion, plantar flexion, eversion, inversion performed bilaterally without difficulty or discomfort. DP pulses palpated bilaterally and are even. Calves are soft and nontender, negative Homans sign. No other signs of DVT appreciated. Const General: cooperative, healthy appearing and comfortable Resp Effort & Inspection: normal respiratory effort Skin General: no rashes or lesions noted Objective Labs Result Diagrams: 04/22/21 05:30 [facility] Medical History Colostomy in place GERD (gastroesophageal reflux disease) Hiatal hernia History of chemotherapy HTN (hypertension) Neuropathy Osteoarthritis Port-A-Cath in place Radiation adverse effect Rectal cancer (~2019) Seasonal allergies Surgical History History of hysterectomy Hx of arthroscopy of right knee Hx of cholecystectomy Social History household members: none Smoking Status: Never smoker alcohol intake: never Discharge Assessment & Plan Assessment and Plan Assessment: Patient is doing well and is stable. Plan of Treatment: Patient is to continue physical therapy in the outpatient setting following discharge from the hospital. First postoperative visit in clinic is scheduled for 2 weeks following discharge. Current pain management regimen is to be continued as it is adequately controlled the patient's pain level. Aspirin 81 mg twice daily is to be continued for 6 weeks for DVT prophylaxis. Dressing over the incision site is to remain clean, dry, and intact. Dressing can be changed as needed if it becomes damaged or soiled. Avoid placing topical ointme nts over the incision site or soaking the incision site. Patient is to contact clinic with any concerns or questions. Any signs of increased redness, swelling, warmth, pain, discharge from around the incision site should be reported to the clinic. Discharge Plan Discharge Plan Patient Disposition: Home Provider Discharge Comment: Patient cleared for discharge pending PT clearance. Discharge orders & Medications Discharge Orders: Discharge (Order); Ordered 04/24/21 Ordered By: Skip Boyle Prescriptions: New acetaminophen 325 mg Tablet 650 mg PO TID Qty: 90 RF: 0 aspirin 81 mg Tablet,Delayed Release (Dr/Ec) 81 mg PO BID Qty: 90 RF: 0 ibuprofen 400 mg Tablet 400 mg PO Q4HR Qty: 90 RF: 0 oxycodone 5 mg Tablet 10 mg PO Q3HR PRN (Reason: Pain, Severe (7-10)) Qty: 42 RF: 0 Continued lisinopril 20 mg Tablet 20 mg PO BEDTIME RF: 0 acetaminophen 500 mg Tablet 1,000 mg PO Q6H RF: 0 oxycodone 5 mg Capsule 5 mg PO BEDTIME RF: 0 cyclobenzaprine 5 mg Tablet 5 mg PO BEDTIME RF: 0 gabapentin 300 mg Tablet 300 mg PO BID RF: 0 diphenhydramine HCl [Benadryl] 25 mg Capsule 25 mg PO Q4-5H PRN (Reason: Seasonal allergies) RF: 0 Chlor-Trimeton 4 mg 4 mg PO RF: 0 Follow up/Referrals: Paulette Muir MD [Primary Care Provider] - Diet/Activity/Treatments Diet: Diet as Tolerated and Regular Activity: Weight-bearing as tolerated with the assistance of a front wheeled w alker. Standard total hip replacement protocol, posterior hip precautions. Skin/Wound/Dressing Care Report to your healthcare provider any signs of infection, such as:: chills, fever, night sweats, unusual drainage and unusual redness Dressing: Dressing over the incision site can be changed as needed if it becomes damaged or soiled. Other wound treatment: Avoid placing topical ointments over the incision site. Avoid soaking the incision site. Visit Report/Discharge Packet Instructions: DI for Hip Replacement Stand Alone Forms: Surgery Discharge Discharge Data Primary Care Provider: Paulette Muir Attending Provider: Neha Mendes VTE Deep Vein Thrombosis/Pulmonary Embolism Present on Admission: No
[2021-04-24] MEDS: GABAPENTIN 300 MG CAPSULE PO (08:41)
[2021-04-24] MEDS: ACETAMINOPHEN 325 MG TABLET 650 MG PO (08:41)
[2021-04-24] MEDS: ASPIRIN EC 81 MG TABLET PO (08:41)
[2021-04-24] MEDS: DOCUSATE 100 MG CAPSULE PO (08:42)
[2021-04-24] MEDS: hydrOXYzine pamoate 25 MG CAPSULE 50 MG PO (08:44)
[2021-04-24] MEDS: SODIUM CHLORIDE 0.9% FLUSH 10 ML IV (08:46)
[2021-04-24 08:50] VITALS: BP 130/76; PULSE 91; RESP 14; TEMP 36.5; O2SAT 95
--- NOTE | 2021-04-24 09:01 | CM.DPNOTE ---
Spoke to Hailey from [facility] and she said she received everything but H&P & DC sum. I faxed those and received fax conf. Marimar Garcia CM Asst.
--- NOTE | 2021-04-24 10:47 | OT.IP.EVAL ---
Current Diagnoses Unilateral primary osteoarthritis, left hip (04/22/21) Surgery Performed Operation Date: 04/21/21 13:00 Actual Procedures p Total Hip Arthroplasty(Left) - Neha Mendes MD Past Medical History (Last Reviewed 04/24/21 @ 07:41 by Skip Boyle PA-C) Colostomy in place GERD (gastroesophageal reflux disease) Hiatal hernia History of chemotherapy History of hysterectomy HTN (hypertension) Hx of arthroscopy of right knee Hx of cholecystectomy Neuropathy Osteoarthritis Port-A-Cath in place Radiation adverse effect Rectal cancer (~2019) Seasonal allergies Surgical History (Last Reviewed 04/24/21 @ 07:41 by Skip Boyle PA-C) History of hysterectomy Hx of arthroscopy of right knee Hx of cholecystectomy Occupational Therapy Inpatient Evaluation/Re-Eval M1 PT/OT-IP Prior Functional Status Start: 04/22/21 11:16 Freq: NEEDED Status: Active Protocol: Document 04/24/21 10:53 [facility] (Rec: 04/24/21 11:04 [facility] [id number]) Medical Review Prior Functional Status Medical History Reviewed Yes Communication able to make needs known Mobility and Gait pt stated that she is modified independent with all mobilities and ambulation using SPC Activities of Daily Living and IADL's Per pt was independent with her ADL needs. Social History Household Members none Living Arrangements Mobile home Number of Stairs To Enter/Railing? 7 steps B rails to enter Home Environment High Toilet,Tub/Shower Home Equipment Grab Bars Near Toilet,Grab Bars In Shower Additional Social History Comment pt stated that she has 2 neighbors/friends that will assist her but may not be able to provide her with physical assistance; stated that her sister who lives in [place], [place] and is an RN will come to stay with her on saturday and will be able to assist her for ~ 5 days. pt sleeps an office chair propped against the wall and she has a foot stool to support her LE M2 OT-IP Current Condition Start: 04/24/21 10:52 Freq: Status: Active Protocol: Document 04/24/21 10:53 [facility] (Rec: 04/24/21 11:04 [facility] [id number]) Occupational Therapy Current Condition Current Condition Evaluation Date 04/24/21 Treatment Diagnosis S/p L JACOB Diagnosis Onset Date 04/22/21 Post Operative Precautions Posterior Hip Precautions No Hip Flexion > 90 degrees,No Hip Internal Rotation,No Hip Adduction M3 OT- IP Subjective and Pain Start: 04/24/21 10:52 Freq: Status: Active Protocol: Document 04/24/21 10:53 [facility] (Rec: 04/24/21 11:04 [facility] [id number]) OT- Subjective Occupational Therapy Visit Type Type Initial Evaluation Visit Start Time 09:23 Visit Stop Time 10:47 Total Visit Minutes 41 Notes Pt seen for split treatment of [id number] and [id number]. Occupational Therapy Visit Comments Patient Comments Pt wanting to take a shower prior to going home. Patient/Caregiver Goals To go home. OT Pain Assessment Pain When Pain Assessed At Rest Pain Present Pain Present Denied Pain M4 OT- IP ADL's Start: 04/24/21 10:52 Freq: Status: Active Protocol: Document 04/24/21 10:53 [facility] (Rec: 04/24/21 11:04 [facility] [id number]) OT QUL-Mare-Xyfbdzs Comments OT Self-Feeding Comments NOt at meal time. OT ADL-Grooming General Evaluation Grooming Ability Standby Assistance OT ADL-Dressing General Eval Upper Body Dressing Ability Independent Lower Body Dressing Ability Minimal Assistance Comments OT Dressing Comments Educated on use of model and mold maker plaster to noemy LLE first and also to put on all LB dressing garments over her feet so just having to stand once. Pt needing DOMINIQUE to help get clothing over her feet. OT ADL-Toileting General Evaluation Toileting Ability Standby Assistance Comments OT Toileting Comments Pt has a colostomy bag, pt wears pads. OT ADL-Bathing Bathing Type Bathing Type Shower General Evaluation Bathing Ability Minimal Assistance Areas Needing Assistance Wash/Dry Lower Extremities Comments OT Bathing Comments Educated to have assist for the shower. Pt states does not have a shower chair but will look into getting one. OT suggested tub bench for pt versus shower chair as pt has a tub/shower. M5 OT- IP IADL's Start: 04/24/21 10:52 Freq: Status: Active Protocol: Document 04/24/21 10:53 [facility] (Rec: 04/24/21 11:04 [facility] [id number]) OT-Instrumental Activities of Daily Living Home Safety Awareness Home Safety Comments Pt to have assist from friends /sister for all needs. M6 OT- IP Functional Cognition Start: 04/24/21 10:52 Freq: Status: Active Protocol: Document 04/24/21 10:53 [facility] (Rec: 04/24/21 11:04 [facility] [id number]) Cognitive Factors Limiting Selfcare Function Cognitive Ability Level of Alertness Alert Patient Orientation Name,Place,Situation Attention Span Ability Capable of Focused Attention, Capable of Sustained Attention Ability to Follow Commands Able to Follow One Step Commands Memory Description No Deficits Noted Safety Awareness Decreased Ability to Apply Precautions Cognitive Comments Cognitive Assessment Comments Pt just needing reminders to incorporate her hips precautions for her needs. OT- Vision and Hearing OT- Hearing Assessment OT- Hearing Assessment WFL OT- Vision Assessment Visual Acuity Glasses All The Time M7 OT- IP Mobility and Balance Start: 04/24/21 10:52 Freq: Status: Active Protocol: Document 04/24/21 10:53 [facility] (Rec: 04/24/21 11:04 [facility] [id number]) OT- Bed Mobility Assessment Supine to Sit Supine to Sit Assist Standby Assistance,Contact Guard Assistance,Head of Bed Elevated Scooting Scooting to Edge of Bed Standby Assistance OT-Transfer Assessment Sit to and From Stand Sit to and from Stand Standby Assistance Transfers Transfer Ability Standby Assistance Technique Transfer Destination Bed,Chair,Toilet Transfer Technique Stand Step Pivot Devices Transfer Assistive Devices Gait Belt,Front Wheeled Walker Comments Mobility Comments Pt needing assist to help get gait belt over her foot so able to assist to get her leg to the edge of the bed. Pt SBA to stand and walk to the bathroom with FWW. OT- Balance Assessment Sitting Balance and Reactions Static Sitting Balance Ability Normal Dynamic Sitting Balance Ability Good Standing Balance and Reactions Static Standing Balance Ability Fair M8 OT- IP Objective Assessments Start: 04/24/21 10:52 Freq: Status: Active Protocol: Document 04/24/21 10:53 [facility] (Rec: 04/24/21 11:04 [facility] [id number]) OT Gross Range of Motion Upper Extremity Range of Motion ROM Impairments WFL for ADl needs. OT Strength Upper Extremity Strength Assessment Within Functional Limits OT-Muscle Tone Assessment Muscle Tone WNL Yes M9 OT- IP Assessment and Plan Start: 04/24/21 10:52 Freq: Status: Active Protocol: Document 04/24/21 10:53 [facility] (Rec: 04/24/21 11:04 [facility] [id number]) OT Summary Assessment and Plan Potential Rehabilitation Potential Good Analytic Complexity at Evaluation Low Summary OT Impairments Balance,Functional Cognition, Toileting,Bathing,Shower Transfers Progress Towards Goals Progressing Toward Goals,Slow Progress due to Cognition Assessment Summary Pt low complexity and main barriers are needing reminders for her hip precautions, assist to get her LLE into and out of the bed, and will need assist for showering and would benefit from getting either a shower chair or tub bench. Pt looking to go home with assist and her sister to come Saturday to stay with her. Goals Grooming Goal Independent Dressing Goal Independent Toileting Goal Independent Bathing Goal Independent Toilet Transfer Goal Independent Shower Transfer Goal Independent Days to Meet Goals 4 Frequency of Treatment Frequency Of Treatment Once a Day Treatment Plan OT Treatment Plan ADL Training,Functional Cognition Training,Functional Mobility,Patient/Family Education,Discharge Planning Discharge Recommendations OT Discharge Recommendations Home with Assistance Home Equipment Needs Shower chair/tub bench Transportation Needs at Discharge Private Vehicle
--- NOTE | 2021-04-24 13:15 | PC.NURSE ---
Pt received awake A&OX 4. PA at bedside evaluating patient and clearing patient for discharge. VSS, afebrile. LS CTA, +BS x4. Pt with fair po intake. CAT dressing to L hip C/D/I. Pt reports pain 3/10 tolerating well with scheduled medications, and vesteril PRN per request. +1 non pitting edema to LLE, patient with 4/5 strength able to ambulate with FWW. OT assisted patient with shower, although declining stairs this a.m. Pt able to dress. She verbalizes understanding of discharge follow up instructions/ appointments, CAT dressing care, medications, activity and worsening symptoms. Patient discharged with all of her belongings, meds returned from pharmacy in altoid boxes x2, and discharged with FWW. RN escorted to private vehicle with friend via wheelchair at approximately 1110.
== END 2021-04-24 11:10 | disposition home or self-care (01) ==
LOC: OR 04-24 07:49 → AC 04-24 07:49
PROVIDERS: Admitting Provider Orthopaedic Surgery; PCP Family Medicine; Referring Provider Orthopaedic Surgery; Visit Provider Orthopaedic Surgery
PROC: 0SRB0JZ Replacement of Left Hip Joint with Synthetic Substitute, Open Approach (ICD-10-PCS; CPT 27130; principal; 2021-04-21 13:00)
DX: M16.12 Unilateral primary osteoarthritis, left hip (principal); M87.052 Idiopathic aseptic necrosis of left femur; K21.9 Gastro-esophageal reflux disease without esophagitis; C20 Malignant neoplasm of rectum; D64.9 Anemia, unspecified
CPT/HCPCS: 27130; 36415; 72170; 73502; 85014; 85018; 97116; 97162; 97165; 97530; 97535; C1776; G0378; C9290; J0171; J0690; J2250; J2405; J2704; J3010